=== PATIENT | female | born 1960 | race Caucasian/White ===

== ENCOUNTER 2018-03-03 12:25 | Emergency (ER) | payer BC ==
[2018-03-03 13:19] VITALS: BP 178/79
--- NOTE | 2018-03-03 13:44 | UC ---
UC General HPI - HPI Summary HPI Summary: PATIENT PRESENTS WITH 3 DAYS OF DIFFUSE BODY ACHES AND JOINT PAIN. SHE HAS A SLIGHT HEADACHE OCCASIONALLY BUT DENIES ANY FEVER OR NAUSEA. NO RASHES. [place] AND IS CONCERNED ABOUT LYME DISEASE. SHE STATES SHE HAD SIMILAR SYMPTOMS ABOUT 3 WEEKS AGO THAT RESOLVED AFTER A DAY OR 2 WITH HERBAL SUPPLEMENTS. - History of Current Complaint Chief Complaint: UCGeneralIllness Stated Complaint: FATIGUE/BODY ACHES Time Seen by Provider: 03/03/18 13:26 Hx Obtained From: Patient Onset/Duration: Gradual Onset, Lasting Days, Still Present Timing: Constant Onset Severity: Moderate Current Severity: Moderate Pain Intensity: 0 - Allergy/Home Medications Allergies/Adverse Reactions: Allergies Allergy/AdvReac Type Severity Reaction Status Date / Time No Known Allergies Allergy Verified 03/03/18 13:19 Home Medications: Home Medications NK [No Home Medications Reported] 03/03/18 [History Confirmed 03/03/18] PMH/Surg Hx/FS Hx/Imm Hx Cardiovascular History: Hypertension - Surgical History Surgical History: Yes Surgery Procedure, Year, and Place: TUBAL LIGATION - Family History Known Family History: Positive: Hypertension - Social History Alcohol Use: Occasionally Substance Use Type: None Smoking Status (MU): Never Smoked Tobacco Review of Systems Constitutional: Negative Respiratory: Negative Cardiovascular: Negative Gastrointestinal: Negative Musculoskeletal: Arthralgia, Myalgia Neurological: Headache All Other Systems Reviewed And Are Negative: Yes Physical Exam Triage Information Reviewed: Yes Appearance: Well-Appearing, No Pain Distress, Well-Nourished Vital Signs: Initial Vital Signs Temp 98.1 F 03/03/18 13:17 Pulse 58 03/03/18 13:17 Resp 14 03/03/18 13:17 BP 178/79 03/03/18 13:17 Pulse Ox 98 03/03/18 13:17 Vital Signs Reviewed: Yes Eyes: Positive: Conjunctiva Clear ENT: Positive: Hearing grossly normal, Pharynx normal, TMs normal Neck: Positive: Supple, Nontender, No Lymphadenopathy Respiratory Exam: Normal Cardiovascular Exam: Normal Abdomen Description: Positive: Soft Musculoskeletal: Positive: ROM Intact, No Edema Neurological: Positive: Alert Psychological: Positive: Age Appropriate Behavior Skin: Negative: rashes Course/Dx - Differential Dx - Multi-Symptom Provider Diagnoses: MYALGIAS/ARTHRALGIAS Discharge - Sign-Out/Discharge Documenting (check all that apply): Discharge/Admit/Transfer - Discharge Plan Condition: Stable Disposition: HOME Patient Education Materials: Musculoskeletal Pain (ED), Arthralgia (ED) Referrals: Erich Mckeon DO [Doctor of Osteopathy] - 2 Weeks Additional Instructions: LYME SEROLOGY DRAWN TODAY. REST, HYDRATE, OTC MEDS NEEDED FOR DISCOMFORT. FOLLOW-UP WITH YOUR PCP IF YOU ARE NOT IMPROVING OVER THE NEXT FEW WEEKS. - Billing Disposition and Condition Condition: STABLE Disposition: HOME
== END 2018-03-03 13:57 | disposition home or self-care (01) ==
LOC: UCEAST 12:25
DX: M79.1 Myalgia (principal); M25.50 Pain in unspecified joint; R51 Headache; I10 Essential (primary) hypertension
CPT/HCPCS: 86618; 99211; G0463

== ENCOUNTER 2018-07-05 11:52 | Emergency (ER) | payer BC ==
[2018-07-05 13:11] VITALS: BP 152/89
[2018-07-05] MEDS ORDERED: Triamcinolone Acetonide* 40 MG/ML 1 ML VIAL IM ONE (13:19)
--- NOTE | 2018-07-05 13:23 | UC ---
Skin Complaint HPI - HPI Summary HPI Summary: The patient is a 55-year-old female that had poison gregoria for almost 2 weeks. The rash is located primarily on her anterior neck as well as both arms especially in the antecubital fossa this. She states the itching is driving her nuts. She has tried multiple [id number] medicines without relief. - History of Current Complaint Chief Complaint: UCSkin Time Seen by Provider: 07/05/18 13:12 Stated Complaint: RASH Hx Obtained From: Patient Onset/Duration: Gradual Onset, Lasting Weeks Timing: Constant Onset Severity: Moderate Current Severity: Moderate Pain Intensity: 0 Pain Scale Used: 0-10 Numeric Character: Pruritus, Redness, Raised Alleviating Factor(s): Nothing Associated Signs & Symptoms: Positive: Rash - Allergy/Home Medications Allergies/Adverse Reactions: Allergies Allergy/AdvReac Type Severity Reaction Status Date / Time No Known Allergies Allergy Verified 07/05/18 13:09 Review of Systems Constitutional: Negative Skin: Rash Eyes: Negative ENT: Negative Respiratory: Negative Cardiovascular: Negative Gastrointestinal: Negative Genitourinary: Negative Motor: Negative Neurovascular: Negative Musculoskeletal: Negative Neurological: Negative Psychological: Negative All Other Systems Reviewed And Are Negative: Yes PMH/Surg Hx/FS Hx/Imm Hx Previously Healthy: Yes - Surgical History Surgical History: Yes Surgery Procedure, Year, and Place: TUBAL LIGATION - Family History Known Family History: Positive: Hypertension - Social History Alcohol Use: Occasionally Substance Use Type: None Smoking Status (MU): Never Smoked Tobacco Physical Exam Triage Information Reviewed: Yes Appearance: Well-Appearing, No Pain Distress, Well-Nourished Vital Signs: Initial Vital Signs Temp 98 F 07/05/18 13:08 Pulse 69 07/05/18 13:08 Resp 16 07/05/18 13:08 BP 152/89 07/05/18 13:08 Pulse Ox 97 07/05/18 13:08 Eyes: Positive: Conjunctiva Clear ENT: Positive: Hearing grossly normal. Negative: Nasal congestion, Nasal drainage, Trismus, Muffled voice, Hoarse voice Neck: Positive: Supple, Nontender Respiratory: Positive: Lungs clear, Normal breath sounds, No respiratory distress, No accessory muscle use Cardiovascular: Positive: RRR, No Murmur Musculoskeletal: Positive: ROM Intact, No Edema Neurological: Positive: Alert Psychological Exam: Normal Skin: Positive: rashes - on arms and neck c/w contact dermatitis Course/Dx - Diagnoses Provider Diagnoses: contact dermatitis Discharge - Sign-Out/Discharge Documenting (check all that apply): Patient Departure All imaging exams completed and their final reports reviewed: No Studies - Discharge Plan Condition: Stable Disposition: HOME Patient Education Materials: Poison Gregoria (ED) Referrals: Lynnette Bateman NP [Primary Care Provider] - If Needed Additional Instructions: marshall for itch you had a cortisone shot here - Billing Disposition and Condition Condition: STABLE Disposition: Home
== END 2018-07-05 13:41 | disposition home or self-care (01) ==
LOC: UCEAST 11:52
DX: L25.9 Unspecified contact dermatitis, unspecified cause (principal)
CPT/HCPCS: 99212; G0463; J3301

== ENCOUNTER 2018-07-11 12:39 | Emergency (ER) | payer BC ==
[2018-07-11 14:13] VITALS: BP 147/76
--- NOTE | 2018-07-11 14:17 | UC ---
Skin Complaint HPI - HPI Summary HPI Summary: 57 yo female presents with ?cellulitis. She tells me that about 3 weeks ago she came into contact with poison gregoria and has a breakout on her forearms. It is slowly healing, but over the last 3 days has had increased redness, swelling, and warmth to her right forearm. She is concerned about infection as some of the areas of blistering/skin are open. Denies fever or chills. - History of Current Complaint Chief Complaint: UCSkin Time Seen by Provider: 07/11/18 14:17 Stated Complaint: SKIN COMPLAINT Hx Obtained From: Patient Onset Severity: Moderate Current Severity: Moderate Pain Intensity: 6 Pain Scale Used: 0-10 Numeric - Allergy/Home Medications Allergies/Adverse Reactions: Allergies Allergy/AdvReac Type Severity Reaction Status Date / Time No Known Allergies Allergy Verified 07/11/18 14:13 Review of Systems Constitutional: Negative Skin: Rash Respiratory: Negative Cardiovascular: Negative Neurovascular: Negative Musculoskeletal: Negative Neurological: Negative Psychological: Negative All Other Systems Reviewed And Are Negative: Yes PMH/Surg Hx/FS Hx/Imm Hx - Additional Past Medical History Additional PMH: None - Surgical History Surgical History: Yes Surgery Procedure, Year, and Place: TUBAL LIGATION - Family History Known Family History: Positive: Hypertension - Social History Occupation: Employed Full-time Lives: With Family Alcohol Use: Occasionally Substance Use Type: None Smoking Status (MU): Never Smoked Tobacco Physical Exam - Summary Physical Exam Summary: GENERAL: NAD. WDWN. No pain distress. SKIN: Right forearm: Diffuse popped blisters and crusting with moderate erythema , edema, and warmth. No streaking, drainage, or purulent matter. Left forearm: Diffuse popped blisters and crusting with mild erythema. No edema or warmth. NECK: Supple. Nontender. No lymphadenopathy. CHEST: No accessory muscle use. Breathing comfortably and in no distress. CV: Pulses intact. Cap refill <2seconds NEURO: Alert. PSYCH: Age appropriate behavior. Triage Information Reviewed: Yes Vital Signs: Initial Vital Signs Temp 97.5 F 07/11/18 14:11 Pulse 72 07/11/18 14:11 Resp 18 07/11/18 14:11 BP 147/76 07/11/18 14:11 Pulse Ox 97 07/11/18 14:11 Vital Signs Reviewed: Yes Course/Dx - Course Course Of Treatment: Cellulitis secondary to poison gregoria right forearm. - Diagnoses Provider Diagnoses: Cellulitis Discharge - Sign-Out/Discharge Documenting (check all that apply): Patient Departure All imaging exams completed and their final reports reviewed: No Studies - Discharge Plan Condition: Stable Disposition: HOME Prescriptions: Cephalexin CAP* [Keflex CAP*] 500 mg PO TID #21 cap Triamcinolone 0.1% CREAM(NF) [Kenalog Cream 0.1%(NF)] 1 applic TOPICAL DAILY #1 tube Patient Education Materials: Cellulitis (DC), Poison Gregoria (ED) Referrals: Lynnette Bateman NP [Primary Care Provider] - Additional Instructions: If you develop a fever, shortness of breath, chest pain, new or worsening symptoms - please call your PCP or go to the ED. Your blood pressure was high at todays visit. Please see your primary provider within 4 weeks for recheck and re-evaluation. - Billing Disposition and Condition Condition: STABLE Disposition: Home
== END 2018-07-11 14:38 | disposition home or self-care (01) ==
LOC: UCEAST 12:39
DX: L03.114 Cellulitis of left upper limb (principal); L03.113 Cellulitis of right upper limb
CPT/HCPCS: 99212; G0463

== ENCOUNTER 2019-03-12 11:51 | Emergency (ER) | payer BC ==
--- NOTE | 2019-03-12 12:23 | UC ---
UC General HPI - HPI Summary HPI Summary: 58 yo female presents with generalized body aches and dry cough for the last month. She tells me that her symptoms began as a "cold" with some sinus congestion, sore throat, and dry cough, but those symptoms resolved within 3-5 days. Since that time she has had generalized body aches and general feeling of unwell. She has not taken anything OTC for her symptoms. She endorses a history of thyroid issues, but has been taking a natural supplement and altering her diet and this has improved this. She is eating and drinking well. No weight loss /gain that she is aware of. No night sweats. She denies fevers, SOB, chest pain , abdominal pain, n/v/d/c, dysuria. LMP was years ago and she is post- menopausal without recent vaginal bleeding or discharge. No breast pain or lumps noticed. Fam hx with DM and CAD. She states that she remembers having something similar to this about a year ago and an extensive work up was done by her PCP with everything returning normal - per pt...eventually symptoms improved. - History of Current Complaint Chief Complaint: UCGeneralIllness Stated Complaint: COUGH BODYACHES Time Seen by Provider: 03/12/19 12:22 Hx Obtained From: Patient Onset/Duration: Gradual Onset Onset Severity: Mild Current Severity: Mild Pain Intensity: 4 - Allergy/Home Medications Allergies/Adverse Reactions: Allergies Allergy/AdvReac Type Severity Reaction Status Date / Time No Known Allergies Allergy Verified 03/12/19 12:17 Home Medications: Home Medications NK [No Home Medications Reported] 03/12/19 [History Confirmed 03/12/19] PMH/Surg Hx/FS Hx/Imm Hx - Additional Past Medical History Additional PMH: "thyroid irregular" - Surgical History Surgical History: Yes Surgery Procedure, Year, and Place: TUBAL LIGATION - Family History Known Family History: Positive: Hypertension - Social History Occupation: Employed Full-time Lives: With Family Alcohol Use: Weekly Substance Use Type: None Smoking Status (MU): Never Smoked Tobacco Review of Systems All Other Systems Reviewed And Are Negative: Yes Constitutional: Positive: Fatigue, Other - Body aches Skin: Positive: Negative Eyes: Positive: Negative ENT: Positive: Negative Respiratory: Positive: Negative Cardiovascular: Positive: Negative Gastrointestinal: Positive: Negative Genitourinary: Positive: Negative Motor: Positive: Negative Neurovascular: Positive: Negative Musculoskeletal: Positive: Negative Neurological: Positive: Negative Psychological: Positive: Negative Physical Exam - Summary Physical Exam Summary: GENERAL: NAD. WDWN. No pain distress. SKIN: No rashes, sores, or open wounds. HEENT: Head: AT/NC Eyes: PERRLA. EOM intact. Conjunctiva clear without inflammation or discharge. Ears: Hearing grossly normal. TMs intact, no bulging, erythema, or edema. Nose: Nasal mucosa pink and moist. NTTP maxillary and frontal sinus. Throat: Posterior oropharynx without exudates, erythema, or tonsillar enlargement. Uvula midline. NECK: Supple. Nontender. No lymphadenopathy. CHEST: CTAB. No r/r/w. No accessory muscle use. Breathing comfortably and in no distress. CV: RRR. Without m/r/g. Pulses intact. Brisk cap refill. ABDOMEN: Soft. NTTP. No distention or guarding. No CVA tenderness. Bowel sounds present MSK: FROM and 5/5 strength throughout. No edema. NEURO: Alert. CN II-XII grossly intact. PSYCH: Age appropriate behavior. Triage Information Reviewed: Yes Vital Signs: Initial Vital Signs Temp 97.7 F 03/12/19 12:17 Pulse 65 03/12/19 12:17 Resp 16 03/12/19 12:17 BP 147/75 03/12/19 12:17 Pulse Ox 97 03/12/19 12:17 Laboratory Tests 03/12/19 03/12/19 12:43 13:15 POC Urine Color Yellow POC Urine Clarity Clear POC Urine pH 5.0 POC Ur Specif [place] 1.020 POC Urine Protein Negative POC Ur Glucose (UA) Negative POC Urine Ketones 1+ A POC Urine Blood Negative POC Urine Nitrite Negative POC Urine Bilirubin Negative POC Urine Urobilinogen 0.2 POC U Leukocyte Esteras Trace A Group A Strep Rapid Negative Vital Signs Reviewed: Yes Course/Dx - Course Course Of Treatment: XR: IMPRESSION:NO ACTIVE CARDIOPULMONARY DISEASE. POC strep negative. POC glucose 72. UA with trace leuks, but she is having no urinary symptoms - will send urine for culture and f/u with results. I am unsure of the cause of the patient's symptoms, they certainly could be the results of a lingering viral illness as she is afebrile and well appearing with a normal exam. Will draw for CBC, CMP, TSH, and lyme today and have pt f/u with her PCP next week for results and recheck of her symptoms. - Diagnoses Provider Diagnosis: Body aches, Fatigue Discharge - Sign-Out/Discharge Documenting (check all that apply): Patient Departure All imaging exams completed and their final reports reviewed: No Studies - Discharge Plan Condition: Stable Disposition: HOME Referrals: Lynnette Bateman SURVEYOR [employer]GR[employer]IC [Primary Care Provider] - 1 Week Additional Instructions: If you develop a fever, shortness of breath, chest pain, new or worsening symptoms - please call your PCP or go to the ED immediately. Your blood pressure was slightly elevated at todays visit. Please see your primary provider within 4 weeks for recheck and re-evaluation 1) Your strep test, chest X-ray, urine test, and glucose were all normal today. 2) I am unsure the cause of your symptoms at this time, but we have drawn for labwork to further evaluate your symptoms. (CBC, CMP, TSH, and lyme test) 3) I strongly recommend that you schedule an appointment with your primary doctor for later this week or next week to further evaluate your symptoms - Billing Disposition and Condition Condition: STABLE Disposition: Home - Attestation Statements Provider Attestation: Per institutional requirements, I have reviewed the chart, however, I was not consulted specifically or made aware of this patient by the midlevel provider. I did not personally evaluate, interact with , or disposition this patient.
[2019-03-12 12:26] VITALS: BP 147/75
[2019-03-12 19:09] LABS: ABS Eosinophils 0.1 10^3/ul (0-0.6); ABS Lymphocytes 1.2 10^3/ul (1.0-4.8); ABS Monocytes 0.5 10^3/ul (0-0.8); ABS Neutrophils 5.7 10^3/ul (1.5-7.7); Eosinophil % 0.8 %; Hematocrit 42 % (35-47); Hemoglobin 14.1 g/dL (12.0-16.0); Lymphocyte % 16.5 %; Mean Corpuscular HGB Conc 34 g/dL (31-36); Mean Corpuscular Hemoglobin 29 pg (27-31); Mean Corpuscular Volume 86 fL (80-97); Mean Platelet Volume 7.8 fL (7.4-10.4); Nucleated Red Blood Cells % 0.1; Platelet Count 316 10^3/uL (150-450); Red Blood Count 4.82 10^6 /uL (3.70-4.87); Red Cell Distribution Width 13 % (10-15); White Blood Count 7.6 10^3/uL (3.5-10.8)
[2019-03-12 19:21] LABS: Albumin 4.4 g/dL (3.2-5.2); Albumin/Globulin Ratio 1.6 (1-3); BUN/Creatinine Ratio 18.1 (8-20); Calcium 9.5 mg/dL (8.6-10.3); EGFR African American 100.3 (>60); EGFR Non-African American 82.9 (>60); Globulin 2.7 g/dL (2-4); Potassium 4.1 mmol/L (3.5-5.0); Total Bilirubin 0.5 mg/dL (0.2-1.0); Total Protein 7.1 g/dL (6.4-8.9)
[2019-03-12 19:34] LABS: TSH (Thyroid Stimulating Horm) 1.69 mcIU/mL (0.34-5.60)
--- NOTE | 2019-03-13 07:53 | UC ---
- Progress Note Progress Note: Lab results come back from March 12, 2019. CBC is normal. The CMP is normal except for the alkaline phosphatase being elevated at 114 normal range 34-104 and the ALT being elevated 56 normal range 7-52. TSH was normal. It's unlikely the mildly elevated alkaline phosphatase and ALT are giving the patient any symptoms. Lyme results are still pending. Nursing to call patient and let her know of the lab results and confirmed that the patient will be following up with her primary care physician. Course/Dx - Diagnoses Provider Diagnoses: Body aches, Fatigue Discharge - Sign-Out/Discharge Documenting (check all that apply): Patient Departure All imaging exams completed and their final reports reviewed: No Studies - Discharge Plan Condition: Stable Disposition: HOME Referrals: Lynnette Bateman NP [Primary Care Provider] - 1 Week Additional Instructions: If you develop a fever, shortness of breath, chest pain, new or worsening symptoms - please call your PCP or go to the ED immediately. Your blood pressure was slightly elevated at todays visit. Please see your primary provider within 4 weeks for recheck and re-evaluation 1) Your strep test, chest X-ray, urine test, and glucose were all normal today. 2) I am unsure the cause of your symptoms at this time, but we have drawn for labwork to further evaluate your symptoms. (CBC, CMP, TSH, and lyme test) 3) I strongly recommend that you schedule an appointment with your primary doctor for later this week or next week to further evaluate your symptoms - Billing Disposition and Condition Condition: STABLE Disposition: Home
--- NOTE | 2019-03-13 11:17 | UC ---
- Progress Note Progress Note: Radiologist reading of chest x-ray from March 12, 2019 comes back as no acute disease process. Provider interpretation of the same date is also no acute disease process therefore there is no discrepancy. Course/Dx - Diagnoses Provider Diagnoses: Body aches, Fatigue Discharge - Sign-Out/Discharge Documenting (check all that apply): Patient Departure All imaging exams completed and their final reports reviewed: Yes - Discharge Plan Condition: Stable Disposition: HOME Referrals: Lynnette Bateman NP [Primary Care Provider] - 1 Week Additional Instructions: If you develop a fever, shortness of breath, chest pain, new or worsening symptoms - please call your PCP or go to the ED immediately. Your blood pressure was slightly elevated at todays visit. Please see your primary provider within 4 weeks for recheck and re-evaluation 1) Your strep test, chest X-ray, urine test, and glucose were all normal today. 2) I am unsure the cause of your symptoms at this time, but we have drawn for labwork to further evaluate your symptoms. (CBC, CMP, TSH, and lyme test) 3) I strongly recommend that you schedule an appointment with your primary doctor for later this week or next week to further evaluate your symptoms - Billing Disposition and Condition Condition: STABLE Disposition: Home
== END 2019-03-12 13:25 | disposition home or self-care (01) ==
LOC: UCEAST 11:51
DX: R05 Cough (principal); R53.83 Other fatigue; M79.10 Myalgia, unspecified site
CPT/HCPCS: 36415; 71046; 80053; 81003; 84443; 85025; 86618; 87086; 87651; 99211; G0463